=== PATIENT | female | born 1975 ===

== ENCOUNTER → 2021-11-13 | Outpatient (CLI) | payer OTHER | END | disposition home or self-care (01) | LOC: Rad HDHVI 10:09 | PROVIDERS: ATTEND Internal Medicine Cardiovascular Disease | DX: I10 Essential (primary) hypertension (principal) | CPT/HCPCS: 93306 ==

== ENCOUNTER → 2021-11-20 | Outpatient (CLI) | payer OTHER ==
[~2021-11-20] VITALS: Ht 160 cm; Wt 47.6 kg
== END | disposition home or self-care (01) ==
LOC: Rad HDHVI 09:28
PROVIDERS: ATTEND Internal Medicine Cardiovascular Disease
DX: R06.02 Shortness of breath (principal); J44.9 Chronic obstructive pulmonary disease, unspecified; J45.909 Unspecified asthma, uncomplicated; I49.9 Cardiac arrhythmia, unspecified; F17.210 Nicotine dependence, cigarettes, uncomplicated
CPT/HCPCS: 78452; 93017; 96374; A9500